=== PATIENT | female | born 2000 | race Caucasian/White ===

== ENCOUNTER 2020-01-18 00:46 | Emergency (ER) | payer SELFPAY ==
[2020-01-18] MEDS ORDERED: Ketorolac Tromethamine 30 MG/ML VIAL ONE (01:20)
[2020-01-18] MEDS ORDERED: Ondansetron PF 4 MG/2 ML Vial ONE (01:20)
[2020-01-18 01:33] LABS: ALT (SGPT) 14 U/L (8-55); AST (SGOT) 21 U/L (5-34); Albumin 4.1 g/dL (3.5-5.0); Alcohol 214 mg/dL (Less than 10); Alkaline Phosphatase 42 U/L (40-100); Anion Gap 16 mmol/L (10-20); BUN (Urea Nitrogen) 12 mg/dL (7.0-18.7); Bilirubin, Total Less than 0.2 mg/dL (0.2-1.2); Calc. Creatinine Clearance 0 mL/min (70-130); Calcium 8.8 mg/dL (7.8-10.44); Carbon Dioxide 21 mmol/L (22-29); Chloride 106 mmol/L (98-107); Globulin 3.1 g/dL (2.4-3.5); Glucose 100 mg/dL (70-105); Potassium 3.2 mmol/L (3.5-5.1); Protein, Total 7.2 g/dL (6.0-8.3); Sodium 140 mmol/L (136-145)
[2020-01-18 01:48] LABS: #Basophils 0.1 thou/uL (0.0-0.2); #Eosinphils 0.1 thou/uL (0.0-0.7); #Lymphocytes 3.1 thou/uL (1.20-3.40); #Monocytes 0.3 thou/uL (0.11-0.59); #Neutrophils 2.9 thou/uL (1.40-6.50); %Basophils 1.4 % (0.0-1.0); %Eosinophils 2.2 % (0.0-10.0); %Lymphocytes 47.3 % (28.0-48.0); %Monocytes 4.7 % (0.0-4.0); %Neutrophils 44.3 % (31.0-61.0); Hemoglobin 12.6 g/dL (12.0-16.0); Mean Corpuscular HGB CONC 35.4 g/dL (32.0-36.0); Mean Corpuscular Hemoglobin 32.1 pg (25.0-35.0); Mean Corpuscular Volume 90.8 fL (78.0-98.0); Mean Platelet Volume 7.8 fL (7.4-10.4); Platelet Count 215 thou/uL (130-400); RBC Distribution Width 11.1 % (11.5-14.5); Red Blood Cell (RBC) Count 3.92 mill/uL (4.00-5.20); White Blood Cell (WBC) Count 6.6 thou/uL (4.8-10.8)
--- NOTE | 2020-01-18 08:06 | CT ---
PRELIMINARY REPORT/[facility]/EMERGENCY AFTER HOURS PROCEDURE: Receipt of this report by the clinical staff was confirmed with Kimberly Herrmann MD by Max Rosen on Jan 18, 2020 01:44:00 [employer]. Addendum electronically signed by Max Rosen on January 18, 2020 1:44:[address] OF THE BRAIN WITHOUT IV CONTRAST CLINICAL HISTORY: Fell from the fifth step on a set of stairs at a bar, laceration to forehead and ch in, hematoma on the left side of the head. Complains of nausea. TECHNIQUE: Serial axial images obtained. Sagittal reconstructed images obtained. Coronal reconstructe d images obtained. Exam is performed without intravenous contrast. Per PQRS, CT exam is performed usi ng one or more of the following dose reduction techniques: Automated exposure control, adjustment of the mA and/or KV according to patient size, or use of iterative reconstruction techniques. COMPARISON: None FINDINGS: Negative for acute bleed. Negative for acute infarct. Normal sized ventricles. Extra-axial compartments are normal. Sinuses are clear. Mastoid air spaces are clear. Middle ear cavities are clear. Calvarium is intact. A small left frontal scalp soft tissue hematoma is seen. IMPRESSION: 1. Negative for acute intracranial process. 2. Small left frontal scalp soft tissue hematoma. CT OF THE CERVICAL SPINE WITHOUT IV CONTRAST CLINICAL HISTORY: Fell from the fifth step on a set of stairs at a bar, laceration to forehead and ch in, hematoma on the left side of the head. Complains of nausea. TECHNIQUE: Serial axial images obtained. Sagittal reconstructed images obtained. Coronal reconstructed images obtained. Exam is performed without intravenous contrast. Per PQRS, CT e xam is performed using one or more of the following dose reduction techniques: Automated exposure con trol, adjustment of the mA and/or KV according to patient size, or use of iterative reconstruction te chniques. COMPARISON: None. FINDINGS: Straightening of the cervical spine is seen, which can be related to positioning versus muscle spasm. Negative for acute compression deformity. Mild disc space narrowing and osteophyte formation is seen at multiple levels of the cervical spine. Soft tissues are unremarkable. Negative for radiodense foreign body. IMPRESSION: 1. Negative for acute compression fracture. 2. Mild degenerative changes of the cervical spine. 3. Straightening of the cervical spine, which can be related to positioning versus muscle spasm. ELECTRONICALLY SIGNED BY: Christopher Thomas MD Jan 18, 2020 1:37:58 AM [employer] This report is intended for review by the ordering physician only, in accordance of law. If you recei ve this report in error, please call [facility] at [phone]. FINAL REPORT EMERGENT AFTER HOURS CT OF THE CERVICAL SPINE WITHOUT CONTRAST: FINDINGS/IMPRESSION: I agree with the findings and impression given in the preliminary report per [facility] physici an. No evidence of acute osseous abnormality in the cervical spine. POS: JAY
--- NOTE | 2020-01-18 08:07 | CT ---
PRELIMINARY REPORT/[facility]/EMERGENCY AFTER HOURS PROCEDURE: Receipt of this report by the clinical staff was confirmed with Kimberly Herrmann MD by Max Rosen on Jan 18, 2020 01:44:00 [employer]CH[employer]IC. Addendum electronically signed by Max Rosen on January 18, 2020 1:44:32 [address] [employer] AP[employer] MECH[employer]IC CT OF THE BRAIN WITHOUT IV CONTRAST CLINICAL HISTORY: Fell from the fifth step on a set of stairs at a bar, laceration to forehead and ch in, hematoma on the left side of the head. Complains of nausea. TECHNIQUE: Serial axial images obtained. Sagittal reconstructed images obtained. Coronal reconstructe d images obtained. Exam is performed without intravenous contrast. Per PQRS, CT exam is performed usi ng one or more of the following dose reduction techniques: Automated exposure control, adjustment of the mA and/or KV according to patient size, or use of iterative reconstruction techniques. COMPARISON: None FINDINGS: Negative for acute bleed. Negative for acute infarct. Normal sized ventricles. Extra-axial compartments are normal. Sinuses are clear. Mastoid air spaces are clear. Middle ear cavities are clear. Calvarium is intact. A small left frontal scalp soft tissue hematoma is seen. IMPRESSION: 1. Negative for acute intracranial process. 2. Small left frontal scalp soft tissue hematoma. CT OF THE CERVICAL SPINE WITHOUT IV CONTRAST CLINICAL HISTORY: Fell from the fifth step on a set of stairs at a bar, laceration to forehead and ch in, hematoma on the left side of the head. Complains of nausea. TECHNIQUE: Serial axial images obtained. Sagittal reconstructed images obtained. Coronal reconstructed images obtained. Exam is performed without intravenous contrast. Per PQRS, CT e xam is performed using one or more of the following dose reduction techniques: Automated exposure con trol, adjustment of the mA and/or KV according to patient size, or use of iterative reconstruction te chniques. COMPARISON: None. FINDINGS: Straightening of the cervical spine is seen, which can be related to positioning versus muscle spasm. Negative for acute compression deformity. Mild disc space narrowing and osteophyte formation is seen at multiple levels of the cervical spine. Soft tissues are unremarkable. Negative for radiodense foreign body. IMPRESSION: 1. Negative for acute compression fracture. 2. Mild degenerative changes of the cervical spine. 3. Straightening of the cervical spine, which can be related to positioning versus muscle spasm. ELECTRONICALLY SIGNED BY: Christopher Thomas MD Jan 18, 2020 1:37:58 AM [employer] MECH[employer]IC This report is intended for review by the ordering physician only, in accordance of law. If you recei ve this report in error, please call [facility] at [phone]. FINAL REPORT EMERGENT AFTER HOURS CT OF THE BRAIN WITHOUT CONTRAST: FINDINGS/IMPRESSION: I agree with the findings and impression given in the preliminary report per [facility] physici an. No evidence of acute intracranial abnormality. POS: JAY
== END 2020-01-18 02:06 | disposition home or self-care (01) ==
LOC: ERS 00:46
DX: S01.511A Laceration without foreign body of lip, initial encounter (principal); S01.81XA Laceration without foreign body of other part of head, initial encounter; S50.10XA Contusion of unspecified forearm, initial encounter; E78.1 Pure hyperglyceridemia; E78.5 Hyperlipidemia, unspecified; Z79.899 Other long term (current) drug therapy; W10.9XXA Fall (on) (from) unspecified stairs and steps, initial encounter
CPT/HCPCS: 12011; 36415; 70450; 72125; 80053; 80307; 85025; 96374; 96375; J1885; J2405